=== PATIENT | female | born 1990 | race American Indian/Alaskan Native ===

== ENCOUNTER 2017-09-13 16:15 | Emergency (ER) | payer SELFPAY ==
--- NOTE | 2017-09-13 17:43 | ED PDOC ---
Arrival/HPI - General Time Seen by Provider: 09/13/17 17:40 Historian: Patient - History of Present Illness Narrative History of Present Illness (Text): 09/13/17 17:40 This 27 yo female presents to this ED c/o vaginal burning, and itching x 10 days. Patient also stated she noticed a vaginaL discharge with faulty odor since this morning. Patient is requesting STD test. Patient denies sob, cp, abdominal pain, n/v, vaginal bleeding, hematuria, urinary frequency, or abnormal gait. Time/Duration: Other (see hpi) Context: Home Past Medical History - Provider Review Nursing Documentation Reviewed: Yes Family/Social History - Physician Review Nursing Documentation Reviewed: Yes Family/Social History: Other (noncontributory) Allergies/Home Meds Allergies/Adverse Reactions: Allergies No Known Allergies Allergy (Verified 09/13/17 18:03) Review of Systems - Review of Systems Constitutional: Normal. absent: Fatigue, Weight Change, Fevers Eyes: Normal ENT: Normal Respiratory: Normal Cardiovascular: Normal Gastrointestinal: Normal Genitourinary Female: Vaginal Discharge Musculoskeletal: Normal Skin: Normal Neurological: Normal Endocrine: Normal Hemo/Lymphatic: Normal Psychiatric: Normal Physical Exam Vital Signs Temp Pulse Resp BP Pulse Ox 09/13/17 18:22 98.2 F 76 16 130/69 99 Temperature: Afebrile Blood Pressure: Normal Pulse: Regular Respiratory Rate: Normal Appearance: Positive for: Well-Appearing, Non-Toxic, Comfortable Pain Distress: None Mental Status: Positive for: Alert and Oriented X 3 - Systems Exam Head: Present: Atraumatic, Normocephalic Pupils: Present: PERRL Extroacular Muscles: Present: EOMI Conjunctiva: Present: Normal Mouth: Present: Moist Mucous Membranes Respiratory/Chest: Present: Clear to Auscultation, Good Air Exchange. No: Respiratory Distress, Accessory Muscle Use, Wheezes, Retracting, Rhonchi Cardiovascular: Present: Regular Rate and Rhythm, Normal S1, S2. 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 No: Vaginal Bleeding, Vaginal Lesions, Adenexal Tenderness, Adenexal Mass, Cervical Motion Tendernes Upper Extremity: Present: Normal Inspection, Normal ROM Lower Extremity: Present: Normal Inspection, Normal ROM Neurological: Present: GCS=15, CN II-XII Intact, Motor Func Grossly Intact, Normal Sensory Function, Normal Cerebellar Funct, Gait Normal. No: Speech Normal Skin: Present: Warm, Dry, Normal Color. No: Rashes Psychiatric: Present: Alert, Oriented x 3, Normal Insight, Normal Concentration Medical Decision Making ED Course and Treatment: 09/13/17 18:35 Re-evaluation. Patient feels better. Discussed results and plan with patient who expresses understanding. All questions answered and there is agreement with the plan to discharge home with instructions. Patient stable for discharge. Return if symptoms persist or worsen. Re-evaluation Time: 18:35 Reassessment Condition: Re-examined, Improved - Medication Orders Current Medication Orders: Discontinued Medications Ceftriaxone Sodium (Rocephin) 250 mg IM STAT STA PRN Reason: Protocol Stop: 09/13/17 18:11 Last Admin: 09/13/17 18:45 Dose: 250 mg IM Administration Charges Document 09/13/17 18:45 GMD (Rec: 09/13/17 18:45 GMD [id number]) Injection Site MAR Injection Site Left Deltoid Charges for Administration # of IM Administrations 1 Fluconazole (Diflucan) 200 mg PO STAT STA PRN Reason: Protocol Stop: 09/13/17 18:11 Last Admin: 09/13/17 18:45 Dose: 200 mg Metronidazole (Flagyl) 2,000 mg PO STAT STA PRN Reason: Protocol Stop: 09/13/17 18:12 Last Admin: 09/13/17 18:45 Dose: 2,000 mg Disposition/Present on Arrival - Present on Arrival Any Indicators Present on Arrival: No History of DVT/PE: No History of Uncontrolled Diabetes: No Urinary Catheter: No History of Decub. Ulcer: No - Disposition Have Diagnosis and Disposition been Completed?: Yes Diagnosis: Vaginal discharge Disposition: HOME/ ROUTINE Disposition Time: 18:36 Patient Plan: Discharge Condition: GOOD Discharge Instructions (ExitCare): Vaginal Discharge in Adults Additional Instructions: Call private doctor for follow up visit in 1-2 days. Take medication as instructed. Return to emergency if symptoms worsen. Review STD result with your doctor in 2-3 days Take medication with food. Prescriptions: Doxycycline Hyclate 100 mg PO BID #20 capsule Fluconazole [Diflucan] 200 mg PO DAILY #1 tab Referrals: Simba Mccurdy, [Primary Care Provider] - Follow up with primary [facility] [Outside] - [facility] with [facility] [[facility]] - Follow up with primary Forms: komoot (Macanese)
[2017-09-13 18:03] VITALS: BMI 45.8
[2017-09-13] MEDS ORDERED: cefTRIAXone (Rocephin) 250 mg Inj IM STA (18:10)
[2017-09-13 18:23] VITALS: BP 130/69; PULSE 76; RESP 16; TEMP 98.2; O2SAT 99
[2017-09-13] MEDS ORDERED: Lidocaine 1% Inj (20ml) ONE (18:31)
== END 2017-09-13 18:54 | disposition home or self-care (01) ==
LOC: ED 16:15
DX: N89.8 Other specified noninflammatory disorders of vagina (principal)
CPT/HCPCS: 81025; 87491; 87591; 96372; 99284; J0696